=== PATIENT | male | born 1975 | race Caucasian/White ===

== ENCOUNTER 2019-11-05 23:24 | Emergency (ER) | payer OTHER, SELFPAY ==
--- NOTE | ~2019-11-05 | XR_ITS ---
EXAMINATION: XR chest 2V DATE: 11/06/2019 00:07 INDICATION: Palpitations. Chest tightness. TECHNIQUE: Frontal and lateral views of the chest were obtained. COMPARISON: CT abdomen and pelvis 05/01/2016 FINDINGS: There is mild atelectasis in the lower lung zones. No pleural effusion or pneumothorax. The heart size is normal. IMPRESSION: 1. Mild atelectasis in the lower lung zones. Reviewed, dictated and finalized at location A.
[2019-11-05 23:30] VITALS: BP 137/82; PULSE 87; RESP 22; TEMP 36.8; O2SAT 99
--- NOTE | 2019-11-05 23:43 | ED.ARRPALP ---
HPI - Arrhythmia/Palpitations General Chief Complaint: Arrhythmia/Palpitations Stated Complaint: rapid heart rate Time Seen by Provider: 11/05/19 23:36 Source: patient Mode of arrival: ambulatory Limitations: no limitations History of Present Illness HPI narrative: Patient is a 44-year-old male who presents for evaluation of palpitations. Patient states he lying down in bed when suddenly his heart began to race, he felt his heart rate was in the 100s, he experienced some chest pain, shortness of breath and nausea. This resolved after approximately 3 minutes. Patient denies any current chest pain, nausea or shortness of breath. He denies headache pain, vision changes. Patient has no history of heart attack or heart problems. He states that in his 20s he was diagnosed with a heart flutter, but never received any other formal diagnosis. To his knowledge she has never worn a Holter monitor. Patient reports intermittent alcohol use, none this evening. He denies drug use, he reports daily tobacco use. No family history of sudden cardiac . No recent travel. No recent sick contacts. No fever, cough, cold, congestion symptoms. Related Data Home Medications Medication Instructions Recorded Confirmed testosterone enanthate 75 mg/0.5 75 mg SUB-Q WEEKLY 10/21/19 mL subcutaneous auto-injector Allergies Allergy/AdvReac Type Severity Reaction Status Date / Time No Known Allergies Allergy Verified 11/06/19 00:24 Review of Systems Review of Systems: Narrative: CONSTITUTIONAL: Denies fever, chills, or sweats. EYES: Denies visual changes, redness, or discharge. ENT: Denies rhinorrhea, congestion, sore throat, or otalgia. CARDIOVASCULAR: Denies current chest pain, palpitations, or edema. RESPIRATORY: Denies cough or dyspnea. GASTROINTESTINAL: Denies abdominal pain, nausea, vomiting, or diarrhea. GENITOURINARY: Denies dysuria or hematuria. SKIN: Denies rash or itching. MUSCULOSKELETAL: Denies back pain, joint pain, or myalgia. NEUROLOGIC: Denies headache, numbness, or weakness. PSYCHIATRIC: Reports history of anxiety [facility] Past Medical History Medical History (Updated 11/06/19 @ 01:55 by Cathy Anguiano MD) Anxiety Surgical History Surgical History History of hip surgery 2018 History of knee surgery 2015 Hx of shoulder surgery Family History Family History Father Lung cancer Grandparent Lung cancer Social History Social History Smoking status: Current every day smoker Alcohol intake: former Substance use: never Exam Narrative: Exam Narrative: GENERAL: Awake, alert, conversant HEAD: Normocephalic, atraumatic. EYES: PERRLA and EOMI. ENT: Nares clear, no rhinorrhea or epistaxis. Mucous membranes moist. NECK: Supple. CHEST: No respiratory distress, breathing even and non labored HEART: Regular rate, sinus rhythm, no chest wall tenderness ABDOMEN:Non distended, non tender EXTREMITIES: Normal range of motion. No edema. SKIN: Warm, dry, no rash. NEURO:No focal deficits. Alert and oriented x3 Course Course Emergency Course: Patient presented for evaluation of chest pain and palpitations that had lasted for a couple of minutes, and have resolved at the time of assessment. Patient is asymptomatic currently. Vital signs are stable, ABCs are intact. Patient's EKG and labs are without significant high risk changes. Cardiac risk factors reviewed. Patient is felt low risk for ACS and reasonable for further risk stratification testing as an outpatient. Pain was not sudden or maximal or onset without tearing or ripping quality. No other signs or symptoms to suggest aortic dissection. A low risk well's criteria is noted, PE is felt to be unlikely. No pneumonia seen on evaluation today. Patient may have had an arrhythmia, atri
[2019-11-06] MEDS: ASPIRIN 81 MG CHEWABLE TABLET 324 MG PO (00:22)
[2019-11-06 00:25] LABS: Basophils Percent Auto 0.4 % (0.2-1.2); Eosinophils Absolute Auto 0.1 K/mm3 (0-0.3); Eosinophils Percent Auto 0.9 % (0-4.4); Hemoglobin 15.6 g/dL (14.0-18.0); Immature Granulocyte Absolute 0.03 K/mm3 (0.00-0.031); Immature Granulocyte Percent A 0.4 % (0-0.5); Lymphocytes Absolute Auto 1.57 K/mm3 (0.9-3.2); Lymphocytes Percent Auto 19.1 % (18.3-44.2); Mean Corpuscular HGB Conc 32.5 g/dl (32-36); Mean Corpuscular Hemoglobin 29.9 pg (26-34); Mean Corpuscular Volume 92.1 fl (80-100); Mean Platelet Volume 10.2 fl (7.4-10.4); Monocytes Absolute Auto 0.7 K/mm3 (0.1-0.6); Monocytes Percent Auto 8.9 % (2.6-8.5); Neutrophils Absolute Auto 5.8 K/mm3 (1.3-6.7); Neutrophils Percent Auto 70.3 % (45.5-73.1); Platelet Count Result 328 k/mm3 (150-375); Red Blood Count 5.21 M/mm3 (4.6-6.20); White Blood Count 8.2 K/mm3 (4.5-10.0)
[2019-11-06 00:36] LABS: Prothrombin Time 12.7 Seconds (11.1-14.7)
[2019-11-06 00:38] LABS: Blood Urea Nitrogen 13 mg/dL (9-20); Calcium 9.2 mg/dL (8.4-10.2); Carbon Dioxide 28 mmol/L (22-30); Chloride 104 mmol/L (98-107); Estimated CRCL calculation 117 ml/min; Estimated Glomerular Filt Rate > 60; Glucose 131 mg/dL (75-110); Potassium 3.8 mmol/L (3.4-5.0); Sodium 139 mmol/L (137-145)
[2019-11-06 00:46] VITALS: BP 128/80; PULSE 63; RESP 12; O2SAT 99
[2019-11-06 01:31] VITALS: BP 135/85; PULSE 69; RESP 24; O2SAT 98
[2019-11-06 01:35] LABS: Troponin I < 0.012 ng/mL (0.000-0.034)
[2019-11-06 02:16] VITALS: BP 121/76; PULSE 56; RESP 21; TEMP 36.7; O2SAT 99
[2019-11-06 03:45] VITALS: BP 126/84; PULSE 57; RESP 15; O2SAT 97
[2019-11-06 03:47] LABS: Troponin I < 0.012 ng/mL (0.000-0.034)
== END 2019-11-06 04:05 | disposition home or self-care (01) ==
PROVIDERS: Emergency Provider Emergency Medicine; PCP Internal Medicine
DX: R00.2 Palpitations (principal); R07.89 Other chest pain
CPT/HCPCS: 36415; 71046; 80048; 84484; 85025; 85610; 85730; 99284; A9270

== ENCOUNTER 2021-05-21 08:37 | Emergency (ER) | payer SELFPAY ==
[2021-05-21] MEDS: KETOROLAC 30 MG/ML VIAL (*BKC) IM (09:03)
[2021-05-21 09:09] VITALS: BP 142/86; PULSE 91; RESP 20; TEMP 36.1; O2SAT 99
--- NOTE | 2021-05-21 09:51 | ED.URI ---
HPI - URI/Sore Throat General Chief Complaint: Upper Respiratory Infection Stated Complaint: swollen throat Time Seen by Provider: 05/21/21 08:46 Source: patient History of Present Illness HPI Narrative: Patient presents with globus sensation. Patient ports he woke up with congestion and was trying to clear his nose and felt something drop in the back of his throat. Reports an odd sensation with swallowing he was concerned so he came to the ER for evaluation is really noted a cough denies fevers denies any nausea or vomiting denies any shortness of breath Related Data Home Medications Medication Instructions Recorded Confirmed testosterone enanthate 75 mg/0.5 75 mg SUB-Q WEEKLY 10/21/19 03/20/21 mL subcutaneous auto-injector Allergies Allergy/AdvReac Type Severity Reaction Status Date / Time No Known Allergies Allergy Verified 03/20/21 09:54 Review of Systems Review of Systems: CONSTITUTIONAL: Denies fever, chills, or sweats. EYES: Denies visual changes, redness, or discharge. ENT: Feels like something dropped CARDIOVASCULAR: Denies chest pain, palpitations, or edema. RESPIRATORY: Denies cough or dyspnea. GASTROINTESTINAL: Denies abdominal pain, nausea, vomiting, or diarrhea. GENITOURINARY: Denies dysuria or hematuria. SKIN: Denies rash or itching. MUSCULOSKELETAL: Denies back pain, joint pain, or myalgia. NEUROLOGIC: Denies headache, numbness, dizziness, or weakness. PSYCHIATRIC: Denies anxiety or depression. All systems reviewed & are unremarkable except as noted in HPI and below PMFSH Past Medical History Medical History Anxiety Surgical History Surgical History History of hip surgery 2018 History of knee surgery 2015 Hx of shoulder surgery Family History Family History Father Lung cancer Grandparent Lung cancer Social History Social History Smoking status: Current every day smoker Alcohol intake: former Substance use: never Exam Narrative: GENERAL: Well-appearing, well-nourished, and in no acute distress. HEAD: Normocephalic, atraumatic. EYES: PERRLA and EOMI. ENT: Nares clear, no rhinorrhea or epistaxis. Mucous membranes moist. Moderate erythema in the posterior pharynx with edema no exudates NECK: Supple. No masses. No JVD, no lymphadenopathy CHEST: Clear to auscultation. No respiratory distress. No wheezes rales or rhonchi HEART: Regular rate and rhythm. No murmur heard. Normal peripheral pulses. EXTREMITIES: Normal range of motion. No edema. SKIN: Warm, dry, no rash. NEURO: No focal deficits. Alert and oriented x3. PSYCH: Normal mood and affect. Course Reevaluation(s) Reevaluation #1: Results reviewed with patient. Patient comfortable with outpatient plan. Date: 05/21/21 Time: 09:54 Vital Signs Vital signs: Vital Signs Temperature 36.1 C L 05/21/21 09:09 Pulse Rate 91 05/21/21 09:09 Respiratory Rate 20 05/21/21 09:09 Blood Pressure 142/86 H 05/21/21 09:09 Pulse Oximetry 99 05/21/21 09:09 Temperature 36.1 C L 05/21/21 09:09 Pulse Rate 91 05/21/21 09:09 Respiratory Rate 20 05/21/21 09:09 Blood Pressure 142/86 H 05/21/21 09:09 Pulse Oximetry 99 05/21/21 09:09 MDM - URI/Sore Throat MDM Narrative Medical decision making narrative: H&P as above, vss, pt looks clinically well, exam edema and erythema of the posterior pharynx, labs with negative strep Covid pending, additional labs/img considered, symptomatic relief available as needed, on reevaluation pt continues to looks clinically well. Suspect pharyngitis, dns severe sepsis, peritonsillar abscess, airway compromise. plan to tx/monitor as op w/ pcm f/u findings/plan discussed with pt, pt agree/comfortable with plan, return precautions given L
[2021-05-22 16:20] LABS: SARS-CoV-2 RNA PCR Negative
== END 2021-05-21 10:08 | disposition home or self-care (01) ==
PROVIDERS: Emergency Provider Emergency Medicine; PCP Internal Medicine
DX: J02.9 Acute pharyngitis, unspecified (principal); Z20.822 Contact with and (suspected) exposure to COVID-19; F17.200 Nicotine dependence, unspecified, uncomplicated
CPT/HCPCS: 87081; 87880; 96372; 99283; C9803; J1885; J8540; U0003; U0005

== ENCOUNTER 2022-01-17 14:28 | Outpatient (CLI) | payer BC, SELFPAY | END 2022-01-17 14:29 | disposition home or self-care (01) | LOC: ANHAUDASC 14:29 | PROVIDERS: PCP Internal Medicine; Visit Provider Otolaryngology | DX: H69.83 Other specified disorders of Eustachian tube, bilateral (principal); H93.11 Tinnitus, right ear | CPT/HCPCS: 92557; 92567 ==

== ENCOUNTER → 2022-03-15 09:28 | Outpatient (CLI) | payer BC, SELFPAY ==
--- NOTE | ~2022-03-15 | XR_ITS ---
XR knee RT 3V 03/15/2022 09:47 Indication: Right knee pain Procedure: 3 views right knee Comparison: No prior studies for comparison. Findings: There is mild tricompartment osteoarthritis. There is an incompletely fused tibial apophysi s. Small joint effusion. No acute fracture. Impression: 1: Mild tricompartment osteoarthritis of the right knee. 2: Small joint effusion. Reviewed, dictated and finalized at location A. Impression: 1: Mild tricompartment osteoarthritis of the right knee. 2: Small joint effusion.
== END ==
PROVIDERS: PCP Clinical Nurse Specialist; Visit Provider Clinical Nurse Specialist
DX: S89.91XA Unspecified injury of right lower leg, initial encounter (principal); M17.11 Unilateral primary osteoarthritis, right knee; M25.461 Effusion, right knee
CPT/HCPCS: 73562

== ENCOUNTER → 2022-03-24 10:20 | Outpatient (CLI) | payer BC, SELFPAY ==
--- NOTE | ~2022-03-24 | MR_ITS ---
EXAMINATION: MR knee RT wo con DATE: 03/24/2022 11:26 INDICATION: Knee injury. 10 days post football injury. Positive Yaa's meniscal sign. TECHNIQUE: Magnetic resonance imaging (MRI) of the right knee was performed without intravenous contr ast. Sequences included axial PD-weighted FS FSE, coronal PD-weighted FSE and PD-weighted FS FSE, sag ittal PD-weighted FSE, and sagittal T2-weighted FS FSE. COMPARISON: None. FINDINGS: Medial compartment: Parrot beak type tear of the junction of the posterior horn and body, medial meniscus. Focal 5 mm are a of near full-thickness cartilage loss including shearing on the weightbearing surface of the medial femoral condyle. Moderate osteophytosis. Lateral compartment: Intact meniscus. Scattered partial-thickness cartilage signal abnormality. Moderate osteophytosis. Patellofemoral compartment: Full-thickness areas of cartilage loss on the medial and lateral patellar facets. Moderate osteophyto sis. Retinacula are intact. Ligaments and tendons: ACL and PCL are intact. Abnormal signal superficial and deep to the second appearing MCL. LCL and PCL are intact. Abnormal signal deep to and between the pes anserine tendons. Remaining flexor and exten sor tendons are intact. Patellar tendon enthesopathy. Fluid: Large volume joint fluid. Large Cordero's cyst. Osseous/other: No suspicious focal or diffuse marrow signal. Focal marrow edema involving intercondylar portions of Hoffa's fat pad. IMPRESSION: 1. Parrot beak type tear of the medial meniscus. 2. Focal cartilage shearing injury on the medial femoral condyle. 3. Acute partial MCL tear, overlying chronic changes. 4. Large knee joint effusion. 5. Pes anserine bursitis. 6. Infrapatellar fat pad impingement. 7. Moderate tricompartmental osteoarthritis. Reviewed, dictated and finalized at location K.
== END ==
PROVIDERS: PCP Internal Medicine; Visit Provider Clinical Nurse Specialist
DX: M17.11 Unilateral primary osteoarthritis, right knee (principal); S83.241A Other tear of medial meniscus, current injury, right knee, initial encounter; X58.XXXA Exposure to other specified factors, initial encounter; S83.411A Sprain of medial collateral ligament of right knee, initial encounter; M25.461 Effusion, right knee
CPT/HCPCS: 73721

== ENCOUNTER → 2022-11-12 08:51 | Outpatient (CLI) | payer BC, SELFPAY ==
--- NOTE | ~2022-11-12 | XR_ITS ---
EXAMINATION: XR knee LT 3V DATE: 11/12/2022 09:09 INDICATION: Left knee injury and pain. TECHNIQUE: 3 views of left knee were obtained. COMPARISON: None. FINDINGS: There is lateral subluxation of patella. No fracture. There is severe osteoarthritis of pat ellofemoral compartment and mild osteoarthritis of medial and lateral compartments. There is a modera te-sized knee joint effusion. IMPRESSION: 1. Severe left knee osteoarthritis. 2. Moderate-sized left knee joint effusion. Reviewed, dictated and finalized at location A.
== END ==
PROVIDERS: PCP Internal Medicine; Visit Provider Clinical Nurse Specialist
DX: S89.92XA Unspecified injury of left lower leg, initial encounter (principal); M17.12 Unilateral primary osteoarthritis, left knee; M25.462 Effusion, left knee
CPT/HCPCS: 73562

== ENCOUNTER → 2022-11-20 12:53 | Outpatient (CLI) | payer BC, SELFPAY ==
--- NOTE | ~2022-11-20 | MR_ITS ---
EXAMINATION: MR knee LT wo con DATE: 11/20/2022 13:28 INDICATION: Severe osteoarthritis and moderate-sized joint effusion at the left knee TECHNIQUE: Magnetic resonance imaging (MRI) of the left knee was performed without intravenous contra st. Sequences included coronal PD-weighted FSE, coronal PD-weighted FS FSE, sagittal T2-weighted FSE , sagittal PD-weighted FS FSE and axial PD weighted fat saturated FSE. COMPARISON: Radiographs dated 11/12/2022 FINDINGS: Medial compartment: The body of the medial meniscus appears small suggesting possibility of prior partial meniscectomy. T here is a superimposed radial tear at the midportion of the meniscal body. Deep chondral ulceration a nd fissuring with minimal underlying subarticular edema-like signal change at the anterior weightbear ing medial femoral condyle. Remaining cartilage in the medial compartment is normal. Lateral compartment: Lateral meniscus is normal. Deep chondral fissuring without degenerative subchondral changes involvin g the posterior medial quadrant of the lateral tibial plateau with small central subchondral osteophy te along the lateral margin of the intercondylar eminence. Patellofemoral compartment: Extensive full/near full-thickness cartilage loss with cortical remodeling involving the majority the lateral patellar facet and lateral trochlea. There is minimal underlying subarticular edema-like sig nal change. Ligaments and tendons: Anterior and posterior cruciate ligaments are normal. The medial collateral ligament and fibular antonia ateral ligament complex are normal. Mild tendinopathy and small enthesopathic ossicle at the distal p atellar tendon. Mild distal quadriceps tendinopathy without tear. The visualized medial and lateral h amstring tendons as well as the iliotibial band are normal. Fluid: Likely reactive moderate sized left knee joint effusion with mild synovitis at the suprapatellar pouc h. 1.3 x 0.7 x 0.2 cm intermediate signal intensity likely loose chondral body positioned at the ceph alad aspect of the trochlear groove. Moderate-sized Cordero's cyst measuring 6.8 cm craniocaudally and 1.9 x 1.6 cm maximal transaxial dimensions. Intermediate signal intensity filling defect within a Cameron er's cyst potentially an additional loose chondral body. Osseous/other: Bone alignment is normal. No fracture or pathologic marrow replacing process. Suggestion of a subtle tract is scarring at the medial side of the infrapatellar fat pad which could represent a trocar acce ss site related to prior arthroscopy. IMPRESSION: 1. Radial tear at the small body of the medial meniscus. The small size of the meniscal body could re flect changes of prior partial meniscectomy. Correlate with surgical history. 2. Tricompartmental osteoarthritis, advanced with cortical remodeling at the lateral side of the davila llofemoral articulation and mild in the medial and lateral compartments with regions of high-grade ch ondromalacia at the weightbearing medial femoral condyle and lateral tibial plateau. 3. Moderate-sized knee joint effusion and moderate-sized Cordero's cyst. Reviewed, dictated and finalized at location L. IMPRESSION: 1. Radial tear at the small body of the medial meniscus. The small size of the meniscal body could reflect changes of prior partial meniscectomy. Correlate wi th surgical history. 2. Tricompartmental osteoarthritis, advanced with cortical remodeling at the la teral side of the patellofemoral articulation and mild in the medial and latera l compartments with regions of high-grade chondromalacia at the weightbearing m edial femoral condyle and lateral tibial plateau. 3. Moderate-sized knee joint effusion and moderate-sized Cordero's cyst.
== END ==
PROVIDERS: PCP Internal Medicine; Visit Provider Clinical Nurse Specialist
DX: M17.12 Unilateral primary osteoarthritis, left knee (principal); M25.462 Effusion, left knee; S83.242D Other tear of medial meniscus, current injury, left knee, subsequent encounter; X58.XXXD Exposure to other specified factors, subsequent encounter
CPT/HCPCS: 73721